=== PATIENT | female | born 1950 | race Caucasian/White ===

== ENCOUNTER 2024-04-12 09:07 | Outpatient (CLI) | payer MEDICARE, BC, SELFPAY | END 2024-04-12 09:08 | disposition home or self-care (01) | LOC: NFLDREF 04-13 14:26 | PROVIDERS: Visit Provider Physician Assistant | DX: N39.0 Urinary tract infection, site not specified (principal); B96.20 Unspecified Escherichia coli [E. coli] as the cause of diseases classified elsewhere | CPT/HCPCS: 87086; 87186 ==

== ENCOUNTER 2024-06-29 18:36 | Emergency (ER) | payer MEDICARE, BC, SELFPAY ==
[2024-06-29] VITALS (24 sets, daily range): BP systolic 128–178; BP diastolic 77–112; PULSE 70–92; RESP 18; TEMP 36.4; O2SAT 92–98; BMI 35.3
--- NOTE | 2024-06-29 18:49 | CRLHL7_ITS ---
For Patients: As a result of the Century Cures Act, medical imaging exams and procedure reports are released immediately into your electronic medical record. You may view this report before your referring provider. If you have questions, please contact your health care provider. INDICATION: Chest on exertion, dyspnea TECHNIQUE: Chest radiograph 2 views COMPARISON: None FINDINGS: The sensitivity and specificity of the exam are moderately limited by the patient`s body habitus. Mediastinum: The mediastinum is normal in appearance. The heart silhouette is normal in size and morphology. Lung: Both lungs are unremarkable in appearance. No sign of pleural effusion seen. No pneumothorax is identified. Bone and Soft tissue: Unremarkable for age. IMPRESSION: 1. No acute cardiopulmonary disease is seen. Dictated by: Orville Briceno MD @ 06/29/2024 19:24:14 (Electronically Signed)
--- NOTE | 2024-06-29 18:50 | ED_ITS ---
HPI - General Adult General Chief complaint: Chest Pain Stated complaint: Chest pain Time Seen by Provider: 06/29/24 18:49 History of Present Illness HPI narrative: Very pleasant 74-year-old female presenting to the ER today with her with concern for episodes of chest discomfort and shortness of breath. She has a past medical history of high cholesterol, hypertension was successfully treated with medications. She has had previous cholecystectomy. She has a family history of coronary disease in her grandmother and her father. She has no personal history of coronary disease. She is not diabetic. She is a nonsmoker. No history of asthma or COPD. No history of DVT or PE She recalls that she had a outpatient stress test some years ago that was normal. She has not had any other recent chest pains. She has never been diagnosed with coronary artery disease. Beginning yesterday she has been having episodes of substernal chest discomfort. She had an episode that occurred sometime early yesterday afternoon. She does not really recall what she was doing when it started but probably just light activities round her house. It lasted about 10 minutes and then got better after she rested. She had a 2nd episode that occurred sometime in late yesterday afternoon and then a 3rd episode that occurred yesterday evening when she was walking around on flat ground getting ready for bed. The episode yesterday evening before bed was quite intense. He was in the center of her chest and radiated up to left side of her jaw. Did not radiate down her arms. It did not go through to her back. She was associated with shortness of breath. Mild nausea. No palpitatio ns. No abdominal pain. The pain went away after about 10 minutes or so. She was woken from sleep at about 3:00 a.m. in the morning with another episode of substernal chest discomfort that felt like a squeezing and burning. It was not as intense as the episode that occurred before bed last night She again had some mild discomfort throughout the day this morning. This evening about 6:00 p.m. when she was walking up a flight of steps at home she had another severe episode of substernal chest discomfort and heaviness and burning. It radiated up to her jaw again. She was mildly nauseous. She has a history of GERD and tried to take Tums but that had no effect on the discomfort. The pain went away after she rested for about 10 minutes. She is currently chest pain-free. She did have a recent car trip to [place] and back but had no leg swelling with that. No recent asymmetric leg swelling. No history of DVT or PE. She had a cold about a month ago but that is better now. She tested negative for COVID. She did have a COVID vaccine next last weekend. Related Data Home Medications ?Medication ?Instructions ?Recorded ?Confirmed amlodipine 5 mg tablet mg PO QDAY 04/12/24 04/12/24 baclofen 10 mg tablet mg PO .PRN 04/12/24 04/12/24 bupropion HCl 100 mg tablet,12 hr mg PO 04/12/24 04/12/24 sustained-release celecoxib 200 mg capsule mg PO QDAY 04/12/24 04/12/24 omeprazole 20 mg capsule,delayed mg PO QDAY 04/12/24 04/12/24 release Allergies Allergy/AdvReac Type Severity Reaction Status Date / Time azithromycin Allergy Mild Verified 04/12/24 08:46 erythromycin base Allergy Mild Verified 04/12/24 08:46 gabapentin Allergy Mild Verified 04/12/24 08:46 bee sting Allergy Mild Uncoded 04/12/24 08:46 PFSH PFSH Social History Smoking Status: Former smoker Do you use any of these nicotine containing products: None Second hand tobacco smoke exposure: No How often do you have a drink containing alcohol: never AUDIT-C Alcohol total score: 0 Non-prescribed substance use: denies use service: No Exam 2 Narrative: Exam Narrative: Constitutional: Appears well-developed and well-nourished. Alert. Conversant. Non toxic. HENT: Head: Atraumatic. Nose: Nose normal. Mouth/Throat: Oral mucosa is clear and moist. no trismus. Pharynx normal. Tonsils symmetric. No tonsillar enlargement, erythema, or exudate. Eyes: Conjunctivae normal. EOM normal. Pupils equal, round, and reactive to light. No scleral icterus. Neck: Normal range of motion. Neck supple. No tracheal deviation present. No JVD Cardiovascular: Normal rate, regular rhythm. No gallop. No friction rub. No murmur heard. Symmetric radial and PT artery pulses Pulmonary/Chest: Effort normal. No stridor. No respiratory distress. No wheezes. No rales. No rhonchi . No tenderness. Abdominal: Soft. Bowel sounds normal. No distension. No mass. No tenderness. No rebound. No guarding. No right upper quadrant 10 Musculoskeletal: RUE: Normal range of motion. No tenderness. No deformity LUE: Normal range of motion. No tenderness. No deformity RLE: Normal range of motion. No edema. No tenderness. No deformity LLE: Normal range of motion. No edema. No tenderness. No deformity Neurological: Alert and oriented to person, place, and time. Normal strength. CN II-VII intact. No sensory deficit. GCS eye subscore is 4. GCS verbal subscore is 5. GCS motor subscore is 6. Normal coordination Skin: Skin is warm and dry. No rash noted. No pallor. Normal capillary refill. Psychiatric: Normal mood. Normal affect. Const: Vital Signs, click to edit/add: Vital Signs - 24 hr 06/29/24 18:52 06/29/24 18:53 06/29/24 18:53 Temperature 97.5 F L Pulse Rate 81 80 Pulse Rate [Pulse Oximeter] 92 Respiratory Rate 18 Blood Pressure 139/90 H Blood Pressure [Ri ght Upper Arm] 178/112 H Pulse Oximetry 97 98 98 Oxygen Delivery Me thod Room Air 06/29/24 19:00 06/29/24 19:07 06/29/24 19:22 Temperature Pulse Rate 85 87 77 Pulse Rate [Pulse Oximeter] Respiratory Rate Blood Pressure 144/94 H 142/81 H Blood Pressure [Ri ght Upper Arm] Pulse Oximetry 97 98 97 Oxygen Delivery Me thod 06/29/24 19:23 06/29/24 19:30 06/29/24 19:31 Temperature Pulse Rate 76 76 78 Pulse Rate [Pulse Oximeter] Respiratory Rate Blood Pressure 154/87 H Blood Pressure [Ri ght Upper Arm] Pulse Oximetry 96 95 95 Oxygen Delivery Me thod 06/29/24 19:51 06/29/24 19:54 06/29/24 20:00 Temperature Pulse Rate 78 77 76 Pulse Rate [Pulse Oximeter] Respiratory Rate Blood Pressure 141/95 H Blood Pressure [Ri ght Upper Arm] Pulse Oximetry 93 93 95 Oxygen Delivery Me thod 06/29/24 20:01 06/29/24 20:15 06/29/24 20:31 Temperature Pulse Rate 76 85 78 Pulse Rate [Pulse Oximeter] Respiratory Rate Blood Pressure 141/83 H 140/81 H Blood Pressure [Ri ght Upper Arm] Pulse Oximetry 95 96 95 Oxygen Delivery Me thod 06/29/24 20:32 06/29/24 20:46 06/29/24 20:47 Temperature Pulse Rate 75 75 75 Pulse Rate [Pulse Oximeter] Respiratory Rate Blood Pressure 137/83 Blood Pressure [Ri ght Upper Arm] Pulse Oximetry 92 95 93 Oxygen Delivery Me thod 06/29/24 21:00 06/29/24 21:02 06/29/24 21:20 Temperature Pulse Rate 70 72 84 Pulse Rate [Pulse Oximeter] Respiratory Rate Blood Pressure 132/77 Blood Pressure [Ri ght Upper Arm] Pulse Oximetry 93 97 95 Oxygen Delivery Me thod 06/29/24 21:30 06/29/24 21:31 06/29/24 21:45 Temperature Pulse Rate 70 74 73 Pulse Rate [Pulse Oximeter] Respiratory Rate Blood Pressure 128/78 Blood Pressure [Ri ght Upper Arm] Pulse Oximetry 97 97 95 Oxygen Delivery Me thod 06/29/24 21:46 Temperature Pulse Rate 72 Pulse Rate [Pulse Oximeter] Respiratory Rate Blood Pressure 140/82 H Blood Pressure [Ri ght Upper Arm] Pulse Oximetry 96 Oxygen Delivery Me thod Course Vital Signs Vital signs: Initial Vital Signs Pulse Rate 81 06/29/24 18:52 Blood Pressure 139/90 H 06/29/24 18:52 Blood Pressure Mean 106 H 06/29/24 18:52 Pulse Oximetry 97 06/29/24 18:52 Vital Signs Pulse Rate 81 06/29/24 18:52 Blood Pressure 139/90 H 06/29/24 18:52 Pulse Oximetry 97 06/29/24 18:52 Temperature 97.5 F L 06/29/24 18:53 Pulse Rate 72 06/29/24 21:46 Respiratory Rate 18 06/29/24 18:53 Blood Pressure 140/82 H 06/29/24 21:46 Pulse Oximetry 96 06/29/24 21:46 Oxygen Delivery Method Room Air 06/29/24 18:53 Medications Administered Medications: Discontinued Medications Generic Name Dose Route Start Last Admin Trade Name Freq PRN Reason Stop Dose Admin Aspirin 324 mg 06/29/24 18:49 06/29/24 19:05 Aspirin 81 Mg Tab.Chew PO 06/29/24 18:50 324 mg ONCE ONE Administration Heparin Sodium (Porcine) 4,000 unit 06/29/24 19:20 06/29/24 19:42 Heparin 5,000 Unit/0.5 Ml Inj IVP 06/29/24 19:21 4,000 unit ONCE ONE Administration Heparin Sodium/Dextrose 25,000 unit in 500 mls @ 0 mls/hr 06/29/24 19:30 06/29/24 19:41 Heparin IV 1,000 unit/hr .Q0M ADDISON 20 mls/hr Administration Protocol Per Protocol Medical Decision Making MDM Narrative Medical decision making narrative: This patient presents to the ER today for evaluation of chest pain that has been occurring off and on starting yesterday. Most of her episodes are associated with activity exertion but she had 1 episode last night that occurred while sleeping and at rest.. Differential was broad. No evidence of palpitations, syncope or other cardiac dysrhythmia. Where concern for possible ACS. Heart-score is elevated at 7. EKG shows no d efinite ischemia. Initial troponin is positive at 0.11. Aspirin administered here in the ER. Will start on heparin. Discussed with Cardiology from [facility]. They have accepted the patient in transfer. 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 She will be transferred by ground EMS when a bed is available. EKG shows no evidence for pericarditis. Clinical presentation not suggestive of myocarditis. Chest x-ray shows no evidence for pneumonia, pneumothorax, pulmonary edema, pleural effusion, rib fracture, cardiomegaly. Mediastinum is normal on the x-ray. The patient has no ripping or tearing pain through to the back and has symmetric pulses on exam, no other acute neuro findings so I doubt aortic dissection. Risk of radiation and contrast exposure would outweigh the benefit of CT angiogram. We considered PE for this patient. However with no leg swelling, no hypoxia or tachycardia, overall would be low risk. D-dimer normal. No wheezing or bronchospasm to suggest COPD/asthma. No signs of chest wall cellulitis, shingles, injury. With reasonable clinical confidence, I think the patient is safe for outpatient follow up. Discussed return precautions. Questions answered. Patient voices comfort with the plan. Lab Data Labs: Lab Results 06/29/24 Range/Units 19:07 WBC 5.32 (4.50-11.00) K/uL RBC 5.22 H (4.00-5.20) m/uL Hgb 15.7 (12.0-16.0) gm/dL Hct 46.9 (33.0-51.0) % MCV 90 (80-100) fL MCH 30 (26-34) pg MCHC 34 (32-36) gm/dL RDW Coeff of Rene 13.0 (11.5-15.5) % Plt Count 257 (140-440) K/uL Neut % (Auto) 53.2 (42.0-72.0) % Lymph % (Auto) 34.0 (20-44) % [place] % (Auto) 9.8 (0.0-11.0) % Eos % (Auto) 2.4 (0.0-7.0) % Baso % (Auto) 0.6 (0.0-3.0) % Neut # (Auto) 2.83 (1.7-7.0) K/uL Lymph # (Auto) 1.81 (0.90-2.90) K/uL [place] # (Auto) 0.50 (0.00-0.90) K/UL Eos # (Auto) 0.13 (0.00-0.50) K/uL Baso # (Auto) 0.03 (0.00-0.30) K/uL Abs Immat Gran (auto) 0.00 (0.00-0.30) K/uL Imm/Tot Granulo (auto) 0.0 % INR 0.89 L (0.91-1.10) APTT 29 (23-33) Seconds D-Dimer Quant (PE/DVT) 0.45 (0.00-0.50) ug/ml Sodium 137 (135-149) mmol/L Potassium 3.9 (3.6-5.1) mmol/L Chloride 103 (96-114) mmol/L Carbon Dioxide 23 (20-32) mmol/L Anion Gap 11 (7-15) mEq/L BUN 14 (7-30) mg/dL Creatinine 0.8 (0.5-1.5) mg/dL Estimated Creat Clear 41.45 Estimated GFR 78 ml/min Glucose 116 H (60-115) mg/dL Calcium 9.8 (8.4-10.6) mg/dL POC Troponin I 0.10 H (0.01-0.04) ng/ml Imaging Data Chest x-ray: Attestation: I have reviewed the pertinent imaging results. My impression: Normal cardiac silhouette. Normal mediastinum. Clear lung ricardo. No evidence for pneumonia, pneumothorax, pulmonary edema, pleural effusion. No rib fracture Radiologist's impression: IMPRESSION: 1. No acute cardiopulmonary disease is seen. ECG Data Attestation: I personally reviewed and interpreted this ECG as follows: Interpretation: Normal sinus rhythm Rate: 82 AK: 172 QRS axis: Normal axis. No pathologic Q-waves. ST segment/T wave: No ST segment elevation or depression. Nonspecific T-wave flattening lead V1, V2, aVL, QTc: 441 Discharge Plan Discharge Clinical Impression: Non-ST elevation ME (NSTEMI) Prescriptions: No Action omeprazole 20 mg capsule,delayed release(DR/EC) PO QDAY Patient Comments: [NO ORIGINAL SIG] amlodipine 5 mg tablet PO QDAY Patient Comments: [NO ORIGINAL SIG] celecoxib 200 mg capsule PO QDAY Patient Comments: [NO ORIGINAL SIG] baclofen 10 mg tablet PO .PRN Patient Comments: [NO ORIGINAL SIG] bupropion HCl 100 mg tablet sustained-release 12 hr PO Patient Comments: [NO ORIGINAL SIG] Follow Up/Referrals: Provider,Not a Local [Primary Care Provider] -
[2024-06-29] MEDS: ASPIRIN 81 MG TAB.CHEW 324 MG PO (19:05)
[2024-06-29 19:22] LABS: Basophils Absolute Auto 0.03 K/uL (0.00-0.30); Basophils Percent Auto 0.6 % (0.0-3.0); Eosinophils Absolute Auto 0.13 K/uL (0.00-0.50); Eosinophils Percent Auto 2.4 % (0.0-7.0); Hematocrit 46.9 % (33.0-51.0); Hemoglobin* 15.7 gm/dL (12.0-16.0); Lymphocytes Absolute Auto 1.81 K/uL (0.90-2.90); Mean Corpuscular HGB Conc 34 gm/dL (32-36); Mean Corpuscular Hemoglobin 30 pg (26-34); Mean Corpuscular Volume 90 fL (80-100); Monocytes Percent Auto 9.8 % (0.0-11.0); Neutrophils Absolute Auto 2.83 K/uL (1.7-7.0); Neutrophils Percent Auto 53.2 % (42.0-72.0); Platelet Count* 257 K/uL (140-440); Red Blood Count 5.22 m/uL (4.00-5.20); White Blood Count* 5.32 K/uL (4.50-11.00)
[2024-06-29 19:29] LABS: Slide Review Reflex No
[2024-06-29 19:35] LABS: Chloride* 103 mmol/L (96-114); Potassium* 3.9 mmol/L (3.6-5.1); Sodium* 137 mmol/L (135-149)
[2024-06-29 19:38] LABS: Anion Gap 11 mEq/L (7-15); Blood Urea Nitrogen* 14 mg/dL (7-30); Carbon Dioxide* 23 mmol/L (20-32); Creatinine* 0.8 mg/dL (0.5-1.5); Est. Creatinine Clearance* 41.45; Estimated Glomerular Filt Rate 78 ml/min; Glucose* 116 mg/dL (60-115)
[2024-06-29 19:39] LABS: Calcium* 9.8 mg/dL (8.4-10.6)
[2024-06-29] MEDS: HEPARIN 25,000 UNIT/500 ML BAG 20 UNIT IV (19:41)
[2024-06-29] MEDS: HEPARIN 5,000 UNIT/0.5 ML INJ 4000 UNIT IVP (19:42)
[2024-06-29 19:48] LABS: INR 0.89 (0.91-1.10); Prothrombin Time 12.6 Seconds
[2024-06-29 19:49] LABS: Partial Thromboplastin Time* 29 Seconds (23-33)
[2024-06-29 19:51] LABS: D Dimer Quantitative* 0.45 ug/ml (0.00-0.50)
--- NOTE | 2024-06-29 20:36 | PC.NURSE ---
Pt report given to AVINASH Boo. Pt going to [id number].
== END 2024-06-29 22:43 | disposition home or self-care (01) ==
LOC: ED 19:50
PROVIDERS: Emergency Provider Emergency Medicine
DX: I21.4 Non-ST elevation (NSTEMI) myocardial infarction (principal)
CPT/HCPCS: 36415; 71046; 80048; 84484; 85025; 85027; 85379; 85610; 85730; 93005; 96374; 99284; 99285; A9270; J1644

== ENCOUNTER 2024-06-29 22:26 | Outpatient (CLI) | payer MEDICARE, BC, SELFPAY | END 2024-06-29 22:27 | disposition home or self-care (01) | LOC: AMB 07-03 16:25 | PROVIDERS: PCP Family Medicine; Visit Provider Emergency Medicine | DX: I21.4 Non-ST elevation (NSTEMI) myocardial infarction (principal) | CPT/HCPCS: A0425; A0427 ==

== ENCOUNTER 2024-07-02 21:55 | Emergency (ER) | payer MEDICARE, BC, SELFPAY ==
[2024-07-02 22:05] VITALS: BP 140/100; PULSE 67; RESP 18; TEMP 36.6; O2SAT 98; BMI 36.1
--- NOTE | 2024-07-02 22:53 | ED.CHESTPAIN ---
HPI - Chest Pain General Time Seen by Provider: 22:54 Date Seen: 07/02/24 Chief Complaint: Chest Pain Stated Complaint: chest pains Time Seen by Provider: 07/02/24 22:53 Source: patient and RN notes reviewed Mode of arrival: ambulatory Limitations: no limitations History of Present Illness HPI narrative: This very pleasant 74-year-old female was triaged to the ER [facility] with chest pain. Patient transferred to [facility] for NSTEMI on June 29, had stent placement, was discharged from [facility] yesterday. She noticed a slight little sensation in her left chest yesterday but it started. Tonight around 6:00 p.m. she was just sitting there and felt a more severe sharp pain in the left chest, does not radiate anywhere. She notes it feels better when she lies back, feels slightly worse sitting up. She did not try nitro at home. The pain while she was sitting at home made her feel clammy. She called the triage line and they advised her to come in. She was not sure she should take nitroglycerin and did not. She is on Eliquis for DVT in her leg, is on Plavix as well. They went through the right groin, she states she had a lot of bleeding, had to do pressure. The groin is sore but no increased pain, does not have any abdominal pain or lower abdominal pain. She is feeling a bit better reclined back in the bed but states she can still feel it. Patient was seen here on June 29 and was complaining of episodes of chest discomfort and shortness of breath. Her past medical history is significant for hyperlipidemia, hypertension. She has had a prior cholecystectomy. There is family history of coronary artery disease in her father and grandmother. She prior to this event had not been diagnosed with any ischemic disease, no diabetes, no tobacco use, no history of asthma or COPD. She states she was diagnosed with a DVT in her leg during the hospitalization and was started on Eliquis for that. Point of care troponin was 0.1 on the . Patient was pain-free on transfer, had her coronary angiogram done on June 30. She had a drug-eluting stent placement into the proximal circumflex. She did have RFA hematoma and symptoms improved with direct pressure and sand bag pressure. Right lower extremity ultrasound was done with the finding of an incidental DVT but no other complications. She was started on Eliquis. Related Data Home Medications ?Medication ?Instructions ?Recorded ?Confirmed amlodipine 5 mg tablet mg PO QDAY 04/12/24 04/12/24 baclofen 10 mg tablet mg PO .PRN 04/12/24 04/12/24 bupropion HCl 100 mg tablet,12 hr mg PO 04/12/24 04/12/24 sustained-release celecoxib 200 mg capsule mg PO QDAY 04/12/24 04/12/24 omeprazole 20 mg capsule,delayed mg PO QDAY 04/12/24 04/12/24 release Allergies Allergy/AdvReac Type Severity Reaction Status Date / Time azithromycin Allergy Mild Verified 04/12/24 08:46 erythromycin base Allergy Mild Verified 04/12/24 08:46 gabapentin Allergy Mild Verified 04/12/24 08:46 bee sting Allergy Mild Uncoded 04/12/24 08:46 Review of Systems Status of ROS Reports: 6 or more systems reviewed and unremarkable except as noted in History and below PFSH [facility] Social History Smoking Status: Former smoker Do you use any of these nicotine containing products: None Second hand tobacco smoke exposure: No How often do you have a drink containing alcohol: never How often do you have six or more drinks on one occasion: Never AUDIT-C Alcohol total score: 0 Non-prescribed substance use: denies use service: No Exam Const Vital Signs, click to edit/add: Vital Signs - 24 hr 07/02/24 22:05 Temperature 98 F Pulse Rate [Pulse Oximeter] 67 Respiratory Rate 18 Blood Pressure [Right Upper Arm] 140/100 H Pulse Oximetry 98 Oxygen Delivery Method Room Air This 74-year-old female is alert, interactive, no apparent distress. She is very pleasant, lying at about 30? in the bed. Looks slightly pale but sclera clear, conjugate gaze, able speak in complete sentences. Neck is supple, no no jugular venous distension. She is able to sit up, lungs are clear, good air entry, no wheezing or crackles. CV regular rate and rhythm, no murmur, normal S1-S2, no S3-S4. Abdomen is soft, nontender, nondistended, no organomegaly. She has bruising in the right groin area, no noted pulsatile mass. Distal neurovascular is intact in her extremities. Documenting provider has reviewed patient's vital signs: yes Course Course ED Course: Patient is going to be monitored on cardiac monitoring and pulse oximetry. She had a point of care troponin done at 10:15 p.m. that was 0.04, initial EKG without any active ischemia. She still has some sense of discomfort, would like to talk to Cardiology about this 1st as it does seem positional. Will check other labs including hemoglobin to ensure that any me is not contributing. Will do a 90 minute troponin but that will not be due until 11:45 p.m.. Patient has noted symptoms since about 6:00 p.m. tonight. Reevaluation(s) Time of Reevaluation #1: 01:32 Reevaluation #1: Did look with limited cardiac ultrasound. See 4 chambers, contractility looks to be good, do not appreciate any definitive regional wall motion abnormalities but admittedly a.m. not expert on that. I certainly do not see any significant pericardial effusion. Patient and I discussed that her troponin still is within normal limits at 6:00 a.m.. She still feels the point of sharper type pain in her chest, better than it was earlier however. Tylenol has helped the groin discomfort she was having, she can safe she really notes any difference in her left chest. Have discussed options of ongoing observation for serial troponins but she declines this. She would prefer to go home, if symptoms are worsening or changing, she states she will return. Her follow-up EKG is not showing any concerning change. Consultations Consultation #1: Spoke with Dr. Main from [facility] on-call. He did review this patient. He would like me to get a trope I at the 6 hour idalia which I have subsequently ordered for midnight. Will also look at the EKG. He would like me to look with an ultrasound just quick to make sure I do not see a significant pericardial effusion. If her 6 hour troponin remains normal, we can have her discharge to home. Time: 23:40 Vital Signs Vital signs: Initial Vital Signs Temperature 98 F 07/02/24 22:05 Temperature Source Temporal Artery Scan 07/02/24 22:05 Pulse Rate 67 07/02/24 22:05 Respiratory Rate 18 07/02/24 22:05 Blood Pressure 140/100 H 07/02/24 22:05 Blood Pressure Mean 113 H 10/25/24 22:05 Blood Pressure Position Supine 07/02/24 22:05 Pulse Oximetry 98 07/02/24 22:05 Oxygen Delivery Method Room Air 07/02/24 22:05 Vital Signs Temperature 98 F 07/02/24 22:05 Pulse Rate 67 07/02/24 22:05 Respiratory Rate 18 07/02/24 22:05 Blood Pressure 140/100 H 07/02/24 22:05 Pulse Oximetry 98 07/02/24 22:05 Oxygen Delivery Method Room Air 07/02/24 22:05 Temperature 98 F 07/02/24 22:05 Pulse Rate 67 07/02/24 22:05 Respiratory Rate 18 07/02/24 22:05 Blood Pressure 140/100 H 07/02/24 22:05 Pulse Oximetry 98 07/02/24 22:05 Oxygen Delivery Method Room Air 07/02/24 22:05 Medications Administered Medications: Discontinued Medications Generic Name Dose Route Start Last Admin Trade Name Freq PRN Reason Stop Dose Admin Acetaminophen 1,000 mg 07/02/24 23:47 07/03/24 00:03 Acetaminophen 500 Mg Tablet PO 07/02/24 23:48 1,000 mg ONCE ONE Administration MDM - Chest Pain Lab Data Attestation: I reviewed the patient's lab results. Labs: Lab Results 07/02/24 07/02/24 Range/Units 00:00 23:15 WBC 6.63 (4.50-11.00) K/uL RBC 5.29 H (4.00-5.20) m/uL Hgb 15.7 (12.0-16.0) gm/dL Hct 48.1 (33.0-51.0) % MCV 91 (80-100) fL MCH 30 (26-34) pg MCHC 33 (32-36) gm/dL RDW Coeff of Rene 12.9 (11.5-15.5) % Plt Count 278 (140-440) K/uL Neut % (Auto) 57.5 (42.0-72.0) % Lymph % (Auto) 31.1 (20-44) % [place] % (Auto) 8.0 (0.0-11.0) % Eos % (Auto) 2.3 (0.0-7.0) % Baso % (Auto) 0.8 (0.0-3.0) % Neut # (Auto) 3.82 (1.7-7.0) K/uL Lymph # (Auto) 2.06 (0.90-2.90) K/uL [place] # (Auto) 0.50 (0.00-0.90) K/UL Eos # (Auto) 0.15 (0.00-0.50) K/uL Baso # (Auto) 0.05 (0.00-0.30) K/uL Abs Immat Gran (auto) 0.02 (0.00-0.30) K/uL Imm/Tot Granulo (auto) 0.3 % Sodium 136 (135-149) mmol/L Potassium 3.6 (3.6-5.1) mmol/L Chloride 100 (96-114) mmol/L Carbon Dioxide 23 (20-32) mmol/L Anion Gap 13 (7-15) mEq/L BUN 22 (7-30) mg/dL Creatinine 1.0 (0.5-1.5) mg/dL Estimated Creat Clear 41.45 Estimated GFR 59 ml/min Glucose 128 H (60-115) mg/dL Calcium 9.7 (8.4-10.6) mg/dL Total Bilirubin 0.9 (0.1-1.5) mg/dL AST 62 H (12-35) U/L ALT 27 (4-35) U/L Alkaline Phosphatase 77 (40-150) U/L Troponin I 0.04 0.03 (0.01-0.04) ng/mL Total Protein 7.8 (6.0-8.3) g/dL Albumin 4.8 (3.3-5.0) g/dL Imaging Data Chest x-ray: Attestation: I have reviewed the pertinent imaging results. My impression: I do not appreciate any cardiomegaly, no infiltrate or congestive heart failure my preliminary review this chest x-ray. Radiologist's impression: Patient: DEDRA HOPKINS Facility:?[facility] Patient ID:?[id number] Site Patient ID:?[id number]. Site :?[id number] Study:?XRay-Chest PORTABLE-07/02/2024 11:16:42 PM Ordering Physician:?KajalElizabeth Jennyfer Final Report: INDICATION: Chest pain. TECHNIQUE: Chest 1 views. COMPARISON: Chest x-ray 06/29/2024. FINDINGS: The heart is not abnormally enlarged. The trachea is midline. No confluent airspace opacity. No pleural effusion or pneumothorax. No acute osseous abnormality. IMPRESSION: No acute cardiopulmonary abnormality. No significant change compared to prior chest radiograph. Dictated by Kamron Houston MD @ 07/02/2024 11:33:40 PM (Electronic Signature) ECG Data Attestation: I personally reviewed and interpreted this ECG as follows: (Normal sinus rhythm, 60 beats per minute. There is isolated Q-wave in lead 3 which was seen on her EKG from June 29 as well.) ECG interpretation date: 07/02/24 ECG interpretation time: 23:17 Prior ECG tracings: available for review Interpretation: EKG from 12:24 a.m. is showing sinus rhythm with first-degree AV block, 60 beats per minute. Q-wave in lead 3 but no other changes elsewhere, no acute ischemia. Discharge Plan Discharge Clinical Impression: Chest pain, History of CAD (coronary artery disease) Instructions: Chest Pain (ED) Additional Instructions: Can continue with Tylenol 1000 mg 3 times a day for discomfort. Continue with your current medications your discharge from [facility] with. You need to return if pain is increasing or changing, have further concerns. Otherwise, continue with any restrictions from your angiogram with stent placement. Prescriptions: No Action omeprazole 20 mg capsule,delayed release(DR/EC) PO QDAY Patient Comments: [NO ORIGINAL SIG] amlodipine 5 mg tablet PO QDAY Patient Comments: [NO ORIGINAL SIG] celecoxib 200 mg capsule PO QDAY Patient Comments: [NO ORIGINAL SIG] baclofen 10 mg tablet PO .PRN Patient Comments: [NO ORIGINAL SIG] bupropion HCl 100 mg tablet sustained-release 12 hr PO Patient Comments: [NO ORIGINAL SIG] Follow Up/Referrals: Provider,Not a Local [Non-Staff] - Stand Alone Forms: [employer] Info Instructions
--- NOTE | 2024-07-02 23:03 | CRLHL7_ITS ---
For Patients: As a result of the Cures Act, medical imaging exams and procedure reports are released immediately into your electronic medical record. You may view this report before your referring provider. If you have questions, please contact your health care provider. INDICATION: Chest pain. TECHNIQUE: Chest 1 views. COMPARISON: Chest x-ray 06/29/2024. FINDINGS: The heart is not abnormally enlarged. The trachea is midline. No confluent airspace opacity. No pleural effusion or pneumothorax. No acute osseous abnormality. IMPRESSION: No acute cardiopulmonary abnormality. No significant change compared to prior chest radiograph. Dictated by Kamron Houston MD @ 07/02/2024 11:33:40 PM (Electronically Signed)
[2024-07-02 23:25] LABS: Basophils Absolute Auto 0.05 K/uL (0.00-0.30); Basophils Percent Auto 0.8 % (0.0-3.0); Eosinophils Absolute Auto 0.15 K/uL (0.00-0.50); Eosinophils Percent Auto 2.3 % (0.0-7.0); Hematocrit 48.1 % (33.0-51.0); Hemoglobin* 15.7 gm/dL (12.0-16.0); Immature Granulocytes Abs Auto 0.02 K/uL (0.00-0.30); Immature Granulocytes Pct Auto 0.3 %; Lymphocytes Absolute Auto 2.06 K/uL (0.90-2.90); Lymphocytes Percent Auto 31.1 % (20-44); Mean Corpuscular HGB Conc 33 gm/dL (32-36); Mean Corpuscular Hemoglobin 30 pg (26-34); Mean Corpuscular Volume 91 fL (80-100); Neutrophils Absolute Auto 3.82 K/uL (1.7-7.0); Neutrophils Percent Auto 57.5 % (42.0-72.0); Platelet Count* 278 K/uL (140-440); RDW Coefficient of Variation % 12.9 % (11.5-15.5); Red Blood Count 5.29 m/uL (4.00-5.20); White Blood Count* 6.63 K/uL (4.50-11.00)
[2024-07-02 23:26] LABS: Albumin* 4.8 g/dL (3.3-5.0); Chloride* 100 mmol/L (96-114); Sodium* 136 mmol/L (135-149)
[2024-07-02 23:27] LABS: Potassium* 3.6 mmol/L (3.6-5.1)
[2024-07-02 23:29] LABS: Alanine Aminotransferase* 27 U/L (4-35); Alkaline Phosphatase* 77 U/L (40-150); Anion Gap 13 mEq/L (7-15); Aspartate Amino Transferase* 62 U/L (12-35); Bilirubin Total* 0.9 mg/dL (0.1-1.5); Blood Urea Nitrogen* 22 mg/dL (7-30); Carbon Dioxide* 23 mmol/L (20-32); Est. Creatinine Clearance* 41.45; Estimated Glomerular Filt Rate 59 ml/min; Glucose* 128 mg/dL (60-115); Total Protein* 7.8 g/dL (6.0-8.3)
[2024-07-02 23:30] LABS: Calcium* 9.7 mg/dL (8.4-10.6)
[2024-07-02 23:37] LABS: Slide Review Reflex No
[2024-07-02 23:41] LABS: Troponin I* 0.03 ng/mL (0.01-0.04)
[2024-07-03] MEDS: ACETAMINOPHEN 500 MG TABLET 1000 MG PO (00:03)
[2024-07-03 00:36] LABS: Troponin I* 0.04 ng/mL (0.01-0.04)
== END 2024-07-03 02:50 | disposition home or self-care (01) ==
PROVIDERS: Emergency Provider Family Medicine; PCP Family Medicine; Visit Provider Family Medicine
DX: R07.9 Chest pain, unspecified (principal); Z86.79 Personal history of other diseases of the circulatory system
CPT/HCPCS: 36415; 71045; 80053; 84484; 85025; 93005; 94761; 99284; 99285; A9270